=== PATIENT | female | born 1950 | race African-American/Black ===

== ENCOUNTER 2023-09-30 17:10 | Emergency (ER) | payer MEDICARE ==
[~2023-09-30] VITALS: Ht 162.6 cm; Wt 86.2 kg
[2023-09-30] VITALS (8 sets, daily range): BP systolic 144–171; BP diastolic 70–128
[~2023-09-30 17:10] MED LIST: METHOCARBAMOL500 MG PO; PERCOCET 5/325M1 TAB PO
[2023-09-30 17:58] LABS: BASO% 0.1 % (0-3); HEMATOCRIT 40.3 % (37.0-47.0); HEMOGLOBIN 12.3 g/dl (12.0-16.0); IMMATURE GRANULOCYTES 0.1 % (0.0-5.0); MEAN CELL VOLUME 79.3 fL CALC (80.0-100.0); MEAN CORPUSCULAR HGB 24.2 pG CALC (26.0-32.0); MEAN CORPUSCULAR HGB CONC 30.5 g/dL CAL (32.0-36.0); MONO% 10.5 % (2-13); NEUT# 5.16 thou/uL (2.00-7.15); NEUT% 71.3 % (42-76); RED BLOOD COUNT 5.08 mill/uL (4.20-5.60); RED CELL DISTRI WIDTH 15.4 % (11.5-15.5)
[2023-09-30 18:11] LABS: ALBUMIN 3.9 g/dL (3.2-5.0); BILIRUBIN, TOTAL 0.5 mg/dL (0.02-1.3); CREATININE 0.8 mg/dL (0.5-1.0); POTASSIUM 4.1 mmol/l (3.5-5.1); TOTAL PROTEIN 8.9 g/dL (6.3-8.2)
[2023-09-30 19:21] LABS: URINE BILIRUBIN - DIPSTICK Negative (NEGATIVE); URINE BLOOD DIPSTICK Large (NEGATIVE); URINE GLUCOSE - DIPSTICK Negative (NEGATIVE); URINE KETONE Negative (NEGATIVE); URINE PH 5.5 (4.5-8.0); URINE PROTEIN - DIPSTICK Trace mg/dL (NEG-TRACE); URINE UROBILINOGEN - DIPSTICK 0.2 E.U./dL (0.2)
[2023-09-30 19:22] LABS: URINE COLOR Yellow; URINE LEUK ESTERASE Large (NEGATIVE); URINE NITRITE - DIPSTICK Positive (Negative)
[2023-09-30 19:31] LABS: URINE BACTERIA FEW hpf; URINE SQUAMOUS EPITHELIAL CELL FEW EPI/hpf (0-FEW); URINE WBC 20-50 WBC/hpf (0-5)
[2023-09-30] MEDS ORDERED: SULFAMETHOXAZOLE W/TRIMETHOPRI 1 COMBO TAB PO ONE (21:10)
[2023-09-30] MEDS ORDERED: BACTRIM DS1 TAB PO (21:20)
== END 2023-09-30 21:49 | disposition home or self-care (01) ==
LOC: ED 17:10
PROVIDERS: Family Medicine
DX: N39.0 Urinary tract infection, site not specified (principal); B96.20 Unspecified Escherichia coli [E. coli] as the cause of diseases classified elsewhere; N89.8 Other specified noninflammatory disorders of vagina; R18.8 Other ascites; I10 Essential (primary) hypertension; E66.9 Obesity, unspecified; Z90.721 Acquired absence of ovaries, unilateral
CPT/HCPCS: Q9967